=== PATIENT | male | born 2000 | race Caucasian/White ===

== ENCOUNTER 2018-02-26 14:33 | Emergency (ER) | payer BC, OTHER ==
--- NOTE | 2018-02-26 15:51 | ER ---
Nurse's Notes [facility] Name: Eliseo Garcia Age: 18 yrs Sex: Male : 2000 Arrival Date: 02/26/2018 Time: 14:39 Bed 11 Private MD: Dylan Post S Diagnosis: Nondisplaced fracture of neck of fifth metacarpal bone, right hand Presentation: 02/26 14:57 Presenting complaint: Patient states: "I punched my tailgate Monday and my right hand aa5 hurts and it's swollen". Transition of care: patient was not received from another setting of care. Onset of symptoms was December 2017. Risk Assessment: Do you want to hurt yourself or someone else? Patient reports no desire to harm self or others. Initial Sepsis Screen: Does the patient meet any 2 criteria? No. Patient's initial sepsis screen is negative. Does the patient have a suspected source of infection? No. Patient's initial sepsis screen is negative. Care prior to arrival: None. 14:57 Method Of Arrival: Ambulatory aa5 14:57 Acuity: JONAS 4 aa5 Triage Assessment: 16:00 General: Appears in no apparent distress. comfortable, well groomed, well developed, sg well nourished, Behavior is calm, cooperative, appropriate for age. Injury Description: i punched the tailgate of my truck. Historical: - Allergies: 14:58 No Known Allergies; aa5 - PMHx: 14:58 ADD/ADHD; aa5 - PSHx: 14:58 None; aa5 - Immunization history:: Adult Immunizations up to date. - Social history:: Smoking status: Patient uses tobacco products, chewing tobacco. - Ebola Screening: : No symptoms or risks identified at this time. Screenin:00 Abuse screen: Denies threats or abuse. Denies injuries from another. Nutritional sg screening: No deficits noted. Tuberculosis screening: No symptoms or risk factors identified. Never had TB. Fall Risk None identified. Assessment: 16:00 General: Appears in no apparent distress. comfortable, well groomed, well developed, sg well nourished, Behavior is calm, cooperative, appropriate for age. Pain: Complains of pain in right hand Pain currently is 6 out of 10 on a pain scale. Quality of pain is described as tender, throbbing. Neuro: No deficits noted. Cardiovascular: Patient's skin is warm and dry. Chest pain is denied. Respiratory: Airway is patent Respiratory effort is even, unlabored, Respiratory pattern is regular, symmetrical. GI: No signs and/or symptoms were reported involving the gastrointestinal system. : No signs and/or symptoms were reported regarding the genitourinary system. EENT: No signs and/or symptoms were reported regarding the EENT system. Derm: Skin is pink, warm \\T\\ dry. Musculoskeletal: Circulation, motion, and sensation intact. Range of motion: intact in all extremities, Swelling present in right hand. 16:07 Reassessment: pt in restroom at this time. sg Vital Signs: 14:58 BP 108 / 74; Pulse 72; Resp 16 S; Temp 97.4(TE); Pulse Ox 99% on R/A; Weight 84.37 kg aa5 (R); Height 5 ft. 8 in. (172.72 cm) (R); Pain 6/10; 16:20 BP 110 / 70; Pulse 77; Resp 16; Pulse Ox 99% on R/A; Pain 6/10; sg 14:58 Body Mass Index 28.28 (84.37 kg, 172.72 cm) aa5 ED Course: 14:39 Patient arrived in ED. mr 14:39 Dylan Post MD is Private Physician. mr 14:57 Cecilio Carroll, RN is Primary Nurse. sg 14:57 Triage completed. aa5 14:57 Arm band placed on. aa5 15:07 [facility] jr8 15:07 Stefano Guardado MD is Attending Physician. jr8 15:33 XRAY Hand RIGHT 3 View In Process Unspecified. EDMS 15:50 Kam Alexander MD is Referral Physician. jr8 16:00 Patient has correct armband on for positive identification. Call light in reach. Pulse sg ox on. NIBP on. 16:00 No provider procedures requiring assistance completed. Accessed Patient did not have IV sg access during this emergency room visit. Winston wrap to left wrist Orthoglass splint: Ulnar gutter/Boxer splint applied on right forearm. offered sling, pt refused, pt stated " I will use my sling from home.". Administered Medications: No medications were administered Outcome: 15:51 Discharge ordered by MD. jr8 16:20 Discharged to home ambulatory, with family. 16:20 Condition: good 16:20 Discharge instructions given to patient, Instructed on discharge instructions, follow up and referral plans. medication usage, safety practices, splint care, anger management techniques Demonstrated understanding of instructions, follow-up care, medications, splint care, Prescriptions given X 1. 16:22 Patient left the ED. iw Signatures: Dispatcher [employer] EDMS Cecilio Carroll RN RN Zoe Lopez mr Chiquita Schuler RN RN Monica Camacho RN RN aa5 Desean Lamb PA PA jr8
--- NOTE | 2018-02-26 15:51 | EDPHYS ---
Physician Documentation [facility] Name: Eliseo Garcia Age: 18 yrs Sex: Male : 2000 Arrival Date: 02/26/2018 Time: 14:39 Bed 11 Private MD: Dylan Post S ED Physician Stefano Guardado HPI: 02/26 15:27 This 18 yrs old Male presents to ER via Ambulatory with complaints of Hand jr8 Injury. 15:27 The patient or guardian reports decreased range of motion, pain, swelling, tenderness. jr8 The complaints affect the right hand diffusely. Context: The problem was sustained at home, resulted from a direct blow, punching solid object. Onset: The symptoms/episode began/occurred acutely, 2 day(s) ago. Modifying factors: The symptoms are alleviated by nothing, the symptoms are aggravated by movement. Associated signs and symptoms: The patient has no apparent associated signs or symptoms. Severity of symptoms: At their worst the symptoms were moderate, in the emergency department the symptoms are unchanged. The patient has not experienced similar symptoms in the past. The patient has not recently seen a physician. Historical: - Allergies: 14:58 No Known Allergies; aa5 - PMHx: 14:58 ADD/ADHD; aa5 - PSHx: 14:58 None; aa5 - Immunization history:: Adult Immunizations up to date. - Social history:: Smoking status: Patient uses tobacco products, chewing tobacco. - Ebola Screening: : No symptoms or risks identified at this time. ROS: 15:27 Eyes: Negative for injury, pain, redness, and discharge, ENT: Negative for injury, jr8 pain, and discharge, Neck: Negative for injury, pain, and swelling, Cardiovascular: Negative for chest pain, palpitations, and edema, Respiratory: Negative for shortness of breath, cough, wheezing, and pleuritic chest pain, Abdomen/GI: Negative for abdominal pain, nausea, vomiting, diarrhea, and constipation, Back: Negative for injury and pain, Skin: Negative for injury, rash, and discoloration, Neuro: Negative for headache, weakness, numbness, tingling, and seizure. 15:27 MS/extremity: Positive for decreased range of motion, pain, swelling, tenderness, of the right hand. Exam: 15:27 Cardiovascular: Regular rate and rhythm with a normal S1 and S2. No gallops, murmurs, jr8 or rubs. Normal PMI, no JVD. No pulse deficits. Respiratory: Lungs have equal breath sounds bilaterally, clear to auscultation and percussion. No rales, rhonchi or wheezes noted. No increased work of breathing, no retractions or nasal flaring. Skin: Warm, dry with normal turgor. Normal color with no rashes, no lesions, and no evidence of cellulitis. Neuro: Awake and alert, GCS 15, oriented to person, place, time, and situation. Cranial nerves II-XII grossly intact. Motor strength 5/5 in all extremities. Sensory grossly intact. Cerebellar exam normal. Normal gait. 15:27 Musculoskeletal/extremity: Extremities: grossly normal except: noted in the right hand: decreased ROM, pain, swelling, tenderness, ROM: full active range of motion, limited passive range of motion, limited active range of motion due to pain, limited passive range of motion due to pain, Circulation is intact in all extremities. Sensation intact. Vital Signs: 14:58 BP 108 / 74; Pulse 72; Resp 16 S; Temp 97.4(TE); Pulse Ox 99% on R/A; Weight 84.37 kg aa5 (R); Height 5 ft. 8 in. (172.72 cm) (R); Pain 6/10; 16:20 BP 110 / 70; Pulse 77; Resp 16; Pulse Ox 99% on R/A; Pain 6/10; sg 14:58 Body Mass Index 28.28 (84.37 kg, 172.72 cm) aa5 Procedures: 15:49 Splinting: Splint applied to right hand using Orthoglass splint, applied by nurse. jr8 Examined by me, post splint application: neurovascular intact, 2+ distal pulses palpable, brisk capillary refill noted, Patient tolerated well. MDM: 15:19 Patient medically screened. jr8 15:49 Data reviewed: vital signs, nurses notes, radiologic studies, plain films, and as a jr8 result, I will discharge patient. Data interpreted: Pulse oximetry: on room air is 99 %. Interpretation: normal. Counseling: I had a detailed discussion with the patient and/or guardian regarding: the historical points, exam findings, and any diagnostic results supporting the discharge/admit diagnosis, radiology results, the need for outpatient follow up, a orthopedic surgeon, to return to the emergency department if symptoms worsen or persist or if there are any questions or concerns that arise at home. 02/26 15:19 Order name: XRAY Hand RIGHT 3 View jr8 02/26 15:49 Order name: Ulnar Gutter splint jr8 Administered Medications: No medications were administered Disposition: 02/27 12:10 Co-signature as Attending Physician, Stefano Guardado MD I agree with the assessment and jenniffer plan of care. Disposition: 02/26/18 15:51 Discharged to Home. Impression: Nondisplaced fracture of neck of fifth metacarpal bone, right hand. - Condition is Stable. - Discharge Instructions: Boxer's Fracture. - Prescriptions for Ibuprofen 800 mg Oral Tablet - take 1 tablet by ORAL route every 8 hours As needed take with food; 30 tablet. - Medication Reconciliation Form, Thank You Letter, Antibiotic Education, Prescription Opioid Use form. - Follow up: Kam Alexander MD; When: 2 - 3 days; Reason: Recheck today's complaints, Continuance of care, Re-evaluation by your physician. - Problem is new. - Symptoms have improved. Signatures: Dispatcher [employer] EDPR Stefano Guardado MD MD cha Williams, Irene, RN RN iw Calderon, Audri, RN RN aa5 Desean Lamb PA PA jr8 Corrections: (The following items were deleted from the chart) 02/26 16:22 15:51 02/26/2018 15:51 Discharged to Home. Impression: Nondisplaced fracture of neck of iw fifth metacarpal bone, right hand. Condition is Stable. Forms are Medication Reconciliation Form, Thank You Letter, Antibiotic Education, Prescription Opioid Use. Follow up: Kam Alexander; When: 2 - 3 days; Reason: Recheck today's complaints, Continuance of care, Re-evaluation by your physician. Problem is new. Symptoms have improved. jr8
--- NOTE | 2018-02-26 17:55 | RAD REPORT ---
EXAM DESCRIPTION: RAD - Hand Right 3 View - 02/26/2018 3:33 pm CLINICAL HISTORY: Right hand pain status post injury FINDINGS: A spiral minimally displaced fracture involves the mid and distal fifth metacarpal. . Mild angulation deformity is present. It is uncertain if this is acute or chronic. No dislocation is seen
== END 2018-02-26 16:22 | disposition home or self-care (01) ==
LOC: ER 14:33
PROC: 2W3CX1Z Immobilization of Right Lower Arm using Splint (ICD-10-PCS; principal; 2018-02-26)
DX: S62.366A Nondisplaced fracture of neck of fifth metacarpal bone, right hand, initial encounter for closed fracture (principal); W22.8XXA Striking against or struck by other objects, initial encounter; Y93.9 Activity, unspecified; Y92.009 Unspecified place in unspecified non-institutional (private) residence as the place of occurrence of the external cause
CPT/HCPCS: 99284